=== PATIENT | female | born 2000 | race Caucasian/White ===

== ENCOUNTER 2022-05-26 20:48 | Emergency (ER) | payer OTHER, SELFPAY ==
--- NOTE | ~2022-05-26 | XR_ITS ---
EXAM: XR foot RT min 3V DATE: 05/26/2022 21:26 HISTORY: twisted jumping over fence; pain/swelling lat Rt ankle . COMPARISON: None available. FINDINGS: Normal mineralization. No fracture or dislocation. No lytic or blastic lesion. Joint space s are maintained. No erosion or periosteal change. Soft tissues within normal limits. Prominent os tr igonum and os navicularis, both can be a source of chronic ankle/foot pain in some patients. IMPRESSION: No acute osseous finding in the right foot. Reviewed, dictated and finalized at location K.
--- NOTE | ~2022-05-26 | XR_ITS ---
EXAM: XR ankle RT 2V DATE: 05/26/2022 21:25 HISTORY: twisted jumping over fence; pain/swellilng lat Rt ankle . COMPARISON: None available. FINDINGS: Normal mineralization. No fracture or dislocation. No lytic or blastic lesion. Joint space s are maintained. No erosion or periosteal change. Lateral soft tissue swelling. IMPRESSION: No acute osseous finding in the right ankle. Reviewed, dictated and finalized at location K.
[2022-05-26 20:54] VITALS: BP 118/77; PULSE 81; RESP 16; TEMP 36.6; O2SAT 99
--- NOTE | 2022-05-26 21:07 | ED.LOWEXIN ---
HPI - Extremity Injury (Lower) General Chief Complaint: Extremity Injury, Lower Stated Complaint: FALL, ANKLE INJURY Time Seen by Provider: 05/26/22 20:48 Source: patient, EMS and RN notes reviewed Mode of arrival: EMS Limitations: no limitations History of Present Illness HPI Narrative: 21 years old white female came to the emergency room by ambulance from home complaining of right ankle pain prior to arrival to the emergency room. Patient denies other injuries. Patient was stepping over a gate, her foot landed in a hole in the ground. Related Data Home Medications Medication Instructions Recorded Confirmed norethindrone 1 mg-ethinyl 1 tablet PO DAILY 04/10/22 estradiol 20 mcg (21)-iron 75 mg (7) tablet (Blisovi Fe 11/14 (28)) Allergies Allergy/AdvReac Type Severity Reaction Status Date / Time No Known Allergies Allergy Unverified 05/26/22 21:01 Review of Systems Review of Systems: All systems reviewed & are unremarkable except as noted in HPI and below PMFSH Family History Family History Other Cancer Social History Social History Smoking status: Never smoker Alcohol intake: never Substance use: never Substance use type: does not use Gender identity (if verbalized by the patient): Female Sexual Orientation (if Verbalized by the Patient): Straight or Heterosexual Exam Narrative: General appearance: Well-developed, well-nourished Skin: Normal color Head: Normocephalic, nontraumatic Vascular: Normal peripheral pulses, normal capillary refill. Musculoskeletal: Diffuse pain right ankle mainly laterally, slightly swelling, no deformity, no bruises. Neurologic: Alert and oriented ?3, [employer] is normal as tested, no gross motor deficit Course Vital Signs Vital signs: Vital Signs Temperature 36.6 C 05/26/22 20:54 Pulse Rate 81 05/26/22 20:54 Respiratory Rate 16 05/26/22 20:54 Blood Pressure 118/77 05/26/22 20:54 Pulse Oximetry 99 05/26/22 20:54 Oxygen Delivery Room Air 05/26/22 20:54 Temperature 36.6 C 05/26/22 20:54 Pulse Rate 81 05/26/22 20:54 Respiratory Rate 16 05/26/22 20:54 Blood Pressure 118/77 05/26/22 20:54 Pulse Oximetry 99 05/26/22 20:54 Oxygen Delivery Room Air 05/26/22 20:54 MDM - Extremity Injury (Lower) Differential Diagnosis Differential diagnosis: Likely ankle sprain and strain and ankle fracture Imaging Data Radiologist's impression: Impressions Ankle X-Ray 05/26/22 21:37 IMPRESSION: No acute osseous finding in the right ankle. Foot X-Ray 05/26/22 21:38 IMPRESSION: No acute osseous finding in the right foot. Critical Care Time Critical Care Time Critical Care Time: No Discharge Plan Discharge Clinical Impression: Ankle sprain Patient Disposition: Home, Self-Care Condition: Stable Instructions: Antibiotic Form, Ankle Sprain (ED) Additional Instructions: Return if symptoms are worsening , call your family physician for appointment, take Tylenol as as needed for aches and pain, continue home medications., Crutches, do not put weight on the right foot, ibuprofen 600 every 6 hours as needed, keep right foot elevated, ice pack 20 minutes/h for the next 24 hours Prescriptions: No Action norethindrone-e.estradiol-iron [[place]ovi Fe 11/14 (28)] 1 mg-20 mcg (21)/75 mg (7) tablet 1 tablet PO DAILY fluconazole [Diflucan] 150 mg tablet 150 mg PO ONCE Qty: 1 0RF Follow-up/Referrals: MD SAGRARIO,RITA Hou [Primary Care Provider] -
[2022-05-26] MEDS: HYDROcodone/acetaminophen (*CRX) 5-325 MG TABLET 1 TAB PO (21:45)
[2022-05-26] MEDS: IBUPROFEN 600 MG TABLET PO (21:46)
[2022-05-26 22:49] VITALS: BP 116/65; PULSE 81; RESP 16; O2SAT 100
== END 2022-05-26 22:51 | disposition home or self-care (01) ==
PROVIDERS: Emergency Provider Emergency Medicine; PCP Physician Assistant
DX: S93.401A Sprain of unspecified ligament of right ankle, initial encounter (principal); W18.39XA Other fall on same level, initial encounter
CPT/HCPCS: 73600; 73630; 99283; A9270

== ENCOUNTER 2023-12-15 12:43 | Outpatient (CLI) | payer OTHER, SELFPAY ==
[2023-12-15 14:39] LABS: Beta HCG Quantitative < 2.39 mIU/ML
== END 2023-12-15 12:44 | disposition home or self-care (01) ==
LOC: ANHLAB 12:44
PROVIDERS: PCP Physician Assistant; Visit Provider Student in an Organized Health Care Education/Training Program
DX: Z30.49 Encounter for surveillance of other contraceptives (principal)
CPT/HCPCS: 36415; 84702